=== PATIENT | female | born 2000 | race Caucasian/White ===

== ENCOUNTER 2025-09-02 11:31 | Outpatient (CLI) | payer OTHER, SELFPAY ==
[2025-09-02 16:06] LABS: Bacterial Vaginosis* Negative (Negative); Candida glab/krus NOT DETECTED (No Detected)
[2025-09-02 16:36] LABS: Chlamydia DNA Amplified* NOT DETECTED (No Detected); GC DNA Amplified* NOT DETECTED (No Detected)
[2025-09-07 08:15] LABS: Pap Test Digital Imaging Done
== END 2025-09-02 11:32 | disposition home or self-care (01) ==
PROVIDERS: Visit Provider Registered Nurse
DX: N89.8 Other specified noninflammatory disorders of vagina (principal); Z12.4 Encounter for screening for malignant neoplasm of cervix
CPT/HCPCS: 81513; 87481; 87491; 87591; 87624; 87625; 87661; 88141; 88142; 88175